=== PATIENT | male | born 1990 | race Caucasian/White ===

== ENCOUNTER → 2016-06-09 | Outpatient (CLI) | payer OTHER | LOC: COL.PUL 05-24 11:00 | DX: J98.4 Other disorders of lung (principal); R93.8 Abnormal findings on diagnostic imaging of other specified body structures ==

== ENCOUNTER → 2016-11-18 | Outpatient (CLI) | payer OTHER | LOC: COL.PUL 09:57 | DX: R06.02 Shortness of breath (principal) | CPT/HCPCS: J7674 ==